=== PATIENT | male | born 1955 | race African-American/Black ===

== ENCOUNTER 2019-01-08 17:22 | Emergency (ER) | payer SELFPAY ==
[~2019-01-08] VITALS: Ht 165.1 cm; Wt 59.1 kg
[~2019-01-08 17:22] MED LIST: NAPROXEN500 MG OR
[2019-01-08 19:00] VITALS: BP 145/98
[2019-01-08] MEDS ORDERED: VOLTAREN - GENE75 MG PO (19:01)
== END 2019-01-08 19:17 | disposition home or self-care (01) | DRG 563 ==
LOC: ED 17:22
DX: S39.012A Strain of muscle, fascia and tendon of lower back, initial encounter (principal); F17.210 Nicotine dependence, cigarettes, uncomplicated; V03.90XA Pedestrian on foot injured in collision with car, pick-up truck or van, unspecified whether traffic or nontraffic accident, initial encounter; Y92.410 Unspecified street and highway as the place of occurrence of the external cause

== ENCOUNTER 2024-04-23 19:01 | Emergency (ER) | payer SELFPAY ==
[~2024-04-23] VITALS: Ht 165.1 cm; Wt 45.0 kg
[2024-04-23] VITALS (8 sets, daily range): BP systolic 138–226; BP diastolic 81–129
[~2024-04-23 19:01] MED LIST changes: +VOLTAREN - GENE75 MG PO
[2024-04-23] MEDS ORDERED: methylPREDNISolone SODIUM SUCC 125 MG/2 ML SDV IV ONE (19:40)
[2024-04-23] MEDS ORDERED: IPRATROPIUM-Albuterol 0.5MG-2.5MG/3 ML NEB ONE (19:40)
[2024-04-23] MEDS ORDERED: hydrALAZINE HCL 20 MG/ML VIAL(1 ML) IV ONE (19:45)
[2024-04-23] MEDS ORDERED: OSELTAMIVIR PHOSPHATE 75 MG/TAB CAP PO ONE ×2 (19:50→21:25)
[2024-04-23 20:06] LABS: BASO% 0.2 % (0-3); HEMATOCRIT 51.1 % (39.0-50.0); HEMOGLOBIN 16.3 g/dl (14.0-18.0); IMMATURE GRANULOCYTES 0.2 % (0.0-5.0); LYMPH% 6.9 % (15-41); MEAN CELL VOLUME 103.2 fL CALC (80.0-100.0); MEAN CORPUSCULAR HGB 32.9 pG CALC (26.0-32.0); MEAN CORPUSCULAR HGB CONC 31.9 g/dL CAL (32.0-36.0); MONO% 7.7 % (2-13); NEUT# 4.28 thou/uL (1.82-7.42); RED BLOOD COUNT 4.95 mill/uL (4.70-6.10); RED CELL DISTRI WIDTH 11.9 % (11.5-15.5)
[2024-04-23 20:21] LABS: ALBUMIN 4.9 g/dL (3.2-5.0); BILIRUBIN, TOTAL 0.6 mg/dL (0.2-1.3); CREATININE 0.9 mg/dL (0.7-1.3); POTASSIUM 4.6 mmol/l (3.5-5.1); TOTAL PROTEIN 9.3 g/dL (6.3-8.2)
[2024-04-23 20:50] LABS: URINE BILIRUBIN - DIPSTICK Negative (NEGATIVE); URINE BLOOD DIPSTICK Trace-intact (NEGATIVE); URINE COLOR Yellow; URINE GLUCOSE - DIPSTICK 100 mg/dL (NEGATIVE); URINE KETONE Negative (NEGATIVE); URINE LEUK ESTERASE Negative (NEGATIVE); URINE NITRITE - DIPSTICK Negative (Negative); URINE PROTEIN - DIPSTICK >=300 mg/dL (NEG-TRACE); URINE SPECIFIC GRAVITY >=1.030
[2024-04-23] MEDS ORDERED: ALBUTEROL SUL0.083 % IN (20:54)
[2024-04-23 20:56] LABS: URINE BACTERIA FEW hpf; URINE RBC 0-2 RBC/hpf (0-5); URINE SQUAMOUS EPITHELIAL CELL FEW EPI/hpf (0-FEW)
[2024-04-23] MEDS ORDERED: ALBUTEROL SULFATE 8 GM INH IN ONE (21:25)
[2024-04-23] MEDS ORDERED: predniSONE 20 MG/TAB PO ONE (21:25)
[2024-04-23] MEDS ORDERED: VENTOLIN HFA IN (21:28)
[2024-04-23] MEDS ORDERED: TAM75CAP PO (21:28)
[2024-04-23] MEDS ORDERED: CARDIZEM CD240 MG PO (21:28)
[2024-04-23] MEDS ORDERED: DILTIAZEM HCl COATED BEADS 180 MG/CAP PO ONE (21:30)
== END 2024-04-23 21:57 | disposition home or self-care (01) | DRG 194 ==
LOC: ED 19:01
PROVIDERS: Nurse Practitioner
DX: J10.1 Influenza due to other identified influenza virus with other respiratory manifestations (principal); J44.1 Chronic obstructive pulmonary disease with (acute) exacerbation; F17.200 Nicotine dependence, unspecified, uncomplicated; Z20.822 Contact with and (suspected) exposure to COVID-19
CPT/HCPCS: J0360